=== PATIENT | male | born 1975 | race Hispanic/Latino ===

== ENCOUNTER 2017-11-03 08:32 | Emergency (ER) | payer OTHER ==
[2017-11-03] MEDS ORDERED: LIDOCAINE 1%-EPI 1:100,000 20 ML VIAL IJ ONE (09:19)
[2017-11-03] MEDS ORDERED: HYDROCODONE/ACETAMINOPHEN 10/325 MG TAB ONE (09:19)
== END 2017-11-03 13:34 | disposition home or self-care (01) ==
LOC: EDH 08:32
DX: L02.31 Cutaneous abscess of buttock (principal); Z72.0 Tobacco use
CPT/HCPCS: 10061; 99284; J3490

== ENCOUNTER 2023-09-09 10:48 | Emergency (ER) | payer OTHER ==
[~2023-09-09] VITALS: Ht 162.6 cm; Wt 77.1 kg
[2023-09-09 10:59] VITALS: BP 129/80; PULSE 93; RESP 18; O2SAT 100
[2023-09-09] MEDS ORDERED: AMOX1TAB16 PO (12:00)
[2023-09-09] MEDS: TETANUS/DIPHTHERIA TOXOID [ADULT] 0.5 ML VIAL IM ONE (12:01)
== END 2023-09-09 12:10 | disposition home or self-care (01) ==
LOC: EDH 10:48
DX: S69.82XA Other specified injuries of left wrist, hand and finger(s), initial encounter (principal); I10 Essential (primary) hypertension; E11.9 Type 2 diabetes mellitus without complications; Z98.890 Other specified postprocedural states; W53.01XA Bitten by mouse, initial encounter; Y93.89 Activity, other specified; Y92.89 Other specified places as the place of occurrence of the external cause; Y99.8 Other external cause status
CPT/HCPCS: 90471; 90714